=== PATIENT | female | born 1990 | race Caucasian/White ===

== ENCOUNTER → 2017-11-19 | Outpatient (CLI) | payer MEDICAID ==
[~2017-11-19] MED LIST: CEPH250C37 PO; OXYC-823 PO; OXYC-865 PO
--- NOTE | 2017-11-19 15:53 | RADIOLOGY IMAGING REPORT ---
FACILITY: [facility] - [place] PATIENT NAME: Niurka Messina : 1990 MR: [id number] V: [id number] EXAM DATE: ORDERING PHYSICIAN: DARIANA ROLDAN TECHNOLOGIST[place] [facility] [place] : 1990 Visit/Account:[id number] Date of Sevice: 11/19/2017 CT of the right knee INDICATION: Evaluate bone graft. Preop. Bone graft placement 06/14/2017. COMPARISON: None available Technique: Axial CT images were obtained through the right knee. Reformatted coronal and sagittal im ages were reviewed. One of the following dose optimization techniques was utilized in the performance of this exam: Autom ated exposure control; adjustment of the mA and/or kV according to the patient's size; or use of an i terative reconstruction technique. Specific details can be referenced in the facility's radiology C T exam operational policy. FINDINGS: There is bone graft material identified within the femoral and tibial tunnels about the right knee. C orrelate for prior ACL reconstruction. The bone graft is heterogeneous in appearance within both the tibial and femoral tunnels. No well-defined lucency seen about the bone graft material. In multiple p lanes, there is evidence of incorporation of the bone graft. There are flecks of bone graft material seen extending from the tibial tunnel into the intercondylar portion of the joint. There are several flecks of bone graft within the lateral and posterior joint space and there is at least one carlos of bone graft within the medial joint space anteriorly. No fractures are seen. There is a trace joint effusion which may be physiologic. There is thickening of the patellar tendon at its insertion. This may be postoperative but could not exclude insertional tendinopathy. IMPRESSION: 1. Incorporation of bone graft material within the tibial and femoral tunnels about the right knee jayden int. 2. Scattered flecks of bone graft material within the joint space separate from the tunnels. See full description above. 3. Trace joint effusion. Report Dictated By: Srinivasa Hand at 11/19/2017 3:17 PM Report E-Signed By: Srinivasa Hand at 11/19/2017 3:49 PM WSN:[id number]
== END ==
LOC: CT 01:05
PROVIDERS: ATTEND Orthopaedic Surgery
DX: M25.461 Effusion, right knee (principal); Z98.890 Other specified postprocedural states

== ENCOUNTER 2017-12-13 01:24 | Day surgery (SDC) | payer MEDICAID, OTHER ==
[~2017-12-13] VITALS: Ht 177.8 cm; Wt 121.6 kg
[2017-12-13] MEDS: LIDOCAINE/SOD BICARB 8.4% SYR ID ONE ×2 (05:26→05:45)
[2017-12-13 05:28] VITALS: BP 119/97
[2017-12-13] MEDS ORDERED: FAMOTIDINE 20 MG TAB PO ONE (06:15)
[2017-12-13] MEDS ORDERED: NORMOSOL R SOLN(*) 1000 ML BAG 1,000 ML IV PRN (06:15)
[2017-12-13] MEDS ORDERED: MIDAZOLAM 2 MG/2 ML VIAL IVP PRN (06:15)
[2017-12-13] MEDS ORDERED: ceFAZolin(*) 2GM/D5W 50ML 50 ML IVPB ONE (06:15)
[2017-12-13] MEDS ORDERED: BUPIVACAINE/EPI 0.5% 50ML VIAL INFIL ONE (06:41)
[2017-12-13] MEDS ORDERED: fentaNYL CITR 100 MCG/2 ML AMP ONE (06:41)
[2017-12-13] MEDS ORDERED: PROPOFOL EMUL(*) 10MG/ML 20 ML 0 ML ONE (06:41)
[2017-12-13] MEDS ORDERED: ONDANSETRON 4 MG/2 ML VIAL ONE (06:41)
[2017-12-13] MEDS ORDERED: MIDAZOLAM 2 MG/2 ML VIAL ONE (06:41)
[2017-12-13] MEDS ORDERED: LIDOCAINE MPF 1% 5 ML VIAL ONE (06:41)
[2017-12-13] MEDS ORDERED: DEXAMETHASONE SOD PHOS 10MG/ML ONE (06:41)
[2017-12-13] MEDS ORDERED: NS(*) 0.9% 10 ML VIAL 0 ML ONE (06:45)
[2017-12-13] MEDS ORDERED: MORPHINE 10 MG/ML SYR ONE (06:45)
[2017-12-13] MEDS ORDERED: BUPIV/EPI 0.25% 1:200,000 50ML INFIL ONE (06:45)
[2017-12-13] MEDS ORDERED: BUPIVACAIN 0.25% INJ 50ML VIAL ONE (06:45)
[2017-12-13] MEDS ORDERED: LIDO/EPI 1% MDV 1:100,000 20ML INFIL ONE (06:46)
[2017-12-13 07:19] VITALS: BP 117/74
[2017-12-13 07:58] VITALS: BP 131/83
[2017-12-13 08:09] VITALS: BP 122/70
[2017-12-13 08:10] VITALS: BP 120/84
== END 2017-12-13 08:15 | disposition home or self-care (01) ==
LOC: OR 01:24
PROVIDERS: ATTEND Orthopaedic Surgery
DX: M25.561 Pain in right knee (principal)
CPT/HCPCS: J0690; J1100; J2001; J2250; J2270; J2405; J2704; J3010; J3490